=== PATIENT | male | born 1960 | race Caucasian/White ===

== ENCOUNTER 2021-01-11 12:45 | Outpatient (CLI) | payer OTHER, SELFPAY ==
--- NOTE | ~2021-01-11 | XR_ITS ---
EXAMINATION: XR knee LT 3V DATE: 01/11/2021 13:02 INDICATION: Left knee pain. TECHNIQUE: 3 views of left knee were obtained. COMPARISON: None. FINDINGS: Bone alignment is normal. No fracture. There is mild osteoarthritis of patellofemoral jessica rtment characterized by a tiny marginal osteophyte. No knee joint effusion. IMPRESSION: 1. Mild left knee osteoarthritis. Reviewed, dictated and finalized at location A.
== END 2021-01-11 12:46 | disposition home or self-care (01) ==
LOC: ANHIMG 12:48
PROVIDERS: PCP Internal Medicine; Visit Provider Nurse Practitioner
DX: M17.12 Unilateral primary osteoarthritis, left knee (principal)
CPT/HCPCS: 73562

== ENCOUNTER 2021-06-24 12:01 | Outpatient (CLI) | payer OTHER, SELFPAY ==
--- NOTE | ~2021-06-24 | XR_ITS ---
XR chest 2V DATE: 06/24/2021 12:20 INDICATION: Abnormal weight loss, 10 pounds over the past year. Smoker. TECHNIQUE: 2 views COMPARISON: None FINDINGS: There is bilateral hyperinflation with flattening the diaphragm and increased retrosternal airspace consistent with COPD. No pulmonary infiltrate or consolidation or pulmonary mass lesion is e vident. Normal heart size. No hilar or mediastinal enlargement. IMPRESSION: Bilateral hyperinflation consistent with COPD Reviewed, dictated and finalized at location A.
== END 2021-06-24 12:02 | disposition home or self-care (01) ==
LOC: ANHIMG 12:05
PROVIDERS: PCP Internal Medicine; Visit Provider Internal Medicine
DX: R63.4 Abnormal weight loss (principal); R91.8 Other nonspecific abnormal finding of lung field
CPT/HCPCS: 71046

== ENCOUNTER 2022-04-28 00:30 | Day surgery (SDC) | payer BC, SELFPAY ==
--- NOTE | 2022-04-27 13:23 | P.HP_ITS ---
History of Present Illness History of Present Illness Consent: Risks, benefits, and alternatives have been discussed and questions answered. Patient agrees to proceed with procedure. Chief complaint: neoplasm screening Narrative: Gerry Davalos is a 61 year old male referred for colon cancer screening. His last colonoscopy was 10 years ago. Review of Systems Review of Systems: All systems reviewed & are unremarkable except as noted in HPI and below PMFSH Past Medical History Medical History Chronic back pain Depression Hypothyroid Family History Family History Grandparent Diabetes mellitus Sibling Asthma Father History of joint problems Social History Social History Smoking status: Never smoker Second hand tobacco smoke exposure: No Additional smoking assessment comments: patient states that he smokes marijuana Alcohol intake: current Alcohol use details: 4 drinks of whisky/coke per night Substance use: current Substance use type: marijuana Other substance usage details: 2-4 bong heads per day Living arrangements: alone Additional occupation/education comments: [employer] [facility] [employer] Spiritual care concerns: No Meds Home Medications and Allergies Home Medications Medication Instructions Recorded Confirmed Type finasteride 5 mg tablet 5 mg PO DAILY 07/20/19 04/28/22 History multivitamin 1 tablet PO DAILY 02/04/21 04/28/22 History omega 8-vkn-xwt-fish oil 1,200 mg 1 cap PO BID 02/04/21 04/28/22 History (144 mg-216 mg) capsule calcium carbonate 600 mg calcium 600 mg PO DAILY #14 tabs 01/06/22 04/28/22 Rx (1,500 mg) tablet (Calcium) ascorbic acid (vitamin C) 500 mg 500 mg PO BID 04/19/22 04/28/22 History tablet bupropion HCl 150 mg tablet,12 hr 150 mg PO DAILY 04/19/22 04/28/22 History sustained-release citalopram 20 mg tablet 20 mg PO DAILY 04/19/22 04/28/22 History levothyroxine 100 mcg tablet 100 mcg PO DAILY 04/19/22 04/28/22 History Allergies Allergy/AdvReac Type Severity Reaction Status Date / Time No Known Allergies Allergy Verified 08/19/22 09:36 Exam Resp: Auscultation: clear to auscultation bilaterally Cardio: Rate: regular rate Rhythm: regular rhythm GI: GI Palp: Yes Soft to palpation and No Tenderness to palpation present (GI) Results Results Additional studies: Colonoscopy with possible biopsy or polypectomy or cautery or injection of substances.
[2022-04-28 09:37] VITALS: BP 126/89; PULSE 79; RESP 16; TEMP 36.2; O2SAT 97
[2022-04-28] MEDS: LACTATED RINGERS 1,000 ML 150 ML IV CONT (09:46)
--- NOTE | 2022-04-28 10:04 | P.PNAN_ITS ---
Anes - Initial Pre Proc Eval Procedure: Operation Date: 04/28/22 10:30 Proposed Procedures p Screening Colonoscopy - Brian Dillard MD Date/Time: 04/28/22 10:04 Surgeon: Brian Dillard MD Pre Op Diagnosis: neoplasm screening Patient Data Age: 61 Gender: M Height: 1.75 m Weight: 65.5 kg Last Vital Signs Temp 97.1 F L 04/28/22 09:37 Pulse 79 04/28/22 09:37 Resp 16 04/28/22 09:37 BP 126/89 04/28/22 09:37 Pulse Ox 97 04/28/22 09:37 O2 Del Method Room Air 04/28/22 09:37 Allergies Allergy/AdvReac Type Severity Reaction Status Date / Time No Known Allergies Allergy Verified 04/28/22 09:36 Home Medications Medication Instructions Recorded Confirmed Type finasteride 5 mg tablet 5 mg PO DAILY 07/20/19 04/28/22 History multivitamin 1 tablet PO DAILY 02/04/21 04/28/22 History omega 2-ejz-wth-fish oil 1,200 mg 1 cap PO BID 02/04/21 04/28/22 History (144 mg-216 mg) capsule calcium carbonate 600 mg calcium 600 mg PO DAILY #14 tabs 01/06/22 04/28/22 Rx (1,500 mg) tablet (Calcium) ascorbic acid (vitamin C) 500 mg 500 mg PO BID 04/19/22 04/28/22 History tablet bupropion HCl 150 mg tablet,12 hr 150 mg PO DAILY 04/19/22 04/28/22 History sustained-release citalopram 20 mg tablet 20 mg PO DAILY 04/19/22 04/28/22 History levothyroxine 100 mcg tablet 100 mcg PO DAILY 04/19/22 04/28/22 History Patient hx anesthesia problems: none Family hx anesthesia problems: none Results Review: All pre-operative results and documents have been reviewed as part of the pre-operative evaluation. [facility] Past Medical History Medical History Chronic back pain Depression Hypothyroid Family History Family History Grandparent Diabetes mellitus Sibling Asthma Father History of joint problems Social History Social History Smoking status: Never smoker Second hand tobacco smoke exposure: No Additional smoking assessment comments: patient states that he smokes marijuana Alcohol intake: current Alcohol use details: 4 drinks of whisky/coke per night Substance use: current Substance use type: marijuana Other substance usage details: 2-4 bong heads per day Living arrangements: alone Additional occupation/education comments: [employer] Spiritual care concerns: No Anes - Eval Final PreProcedure Day of Procedure 04/28/22 10:04 Patient weight: normal Heart: regular rate and rhythm Lungs: clear to auscultation Airway: Mallampati scale class II Neurological: alert and oriented Last oral intake: >/= 8 hours ASA classification: III Emergent: no Anesthetic plan: proceed Anesthesia type and monitoring: general GIVS and standard monitoring Results Review: All pre-operative results and documents have been reviewed as part of the pre- operative evaluation. Informed Consent: The patient's anesthetic plan and its attendant risks and benefits were discussed with the patient/family/POA. Questions were solicited and answers provided to the satisfaction of the patient/family/POA.
[2022-04-28] MEDS: SIMETHICONE ORAL SUSPENSION 20 MG/0.3 ML 30 ML BOTTLE 0.6 ML IRRIGATION (10:20)
[2022-04-28 10:29] VITALS: BP 107/74; PULSE 67; RESP 17; O2SAT 96
[2022-04-28 10:39] VITALS: BP 131/86; PULSE 63; RESP 17; O2SAT 99
[2022-04-28 10:49] VITALS: BP 142/94; PULSE 59; RESP 19; O2SAT 100
== END 2022-04-28 11:11 | disposition home or self-care (01) ==
PROVIDERS: PCP Internal Medicine; Visit Provider Internal Medicine Gastroenterology
PROC: 0DJD8ZZ Inspection of Lower Intestinal Tract, Via Natural or Artificial Opening Endoscopic (ICD-10-PCS; CPT 45378; principal; 2022-04-28 10:30)
DX: Z12.11 Encounter for screening for malignant neoplasm of colon (principal); K57.30 Diverticulosis of large intestine without perforation or abscess without bleeding; D12.4 Benign neoplasm of descending colon; D12.5 Benign neoplasm of sigmoid colon; E03.9 Hypothyroidism, unspecified; F32.A Depression, unspecified; F12.90 Cannabis use, unspecified, uncomplicated
CPT/HCPCS: 45385; 88305; J2704; J7120

== ENCOUNTER 2023-05-08 10:00 | Outpatient (RCR) | payer BC, SELFPAY ==
--- NOTE | 2023-04-10 11:47 | OPREHPOC ---
Outpatient Therapy Plan of Care This is a Multidisciplinary Plan of Care that may contain components documented by all disciplines (PT, OT, and ST.) PT Problem 1 PT Problem #1 Knowledge Deficit PT Goal 1 Goal 1* indep with HEP PT Problem 2 PT Problem #2 Pain PT Goal 1 Goal 1* pt report pain at worst of R shoulder 2/10 2* pt report times of NO pain in R shoulder 3* pt report able to walk his dog without an increase in R shoulder pain PT Problem 3 PT Problem #3 Impaired Strength PT Goal 1 Goal 1* pt perform 20 reps of scapular-thoracic strengthening exercises in standing and on mat. 2* pt maintain good shoulder position during exercises
--- NOTE | 2023-04-10 11:48 | PTOPEVAL1 ---
Assessment and note entered by Ronel Cuevas, PT Evaluation Information Assessment Status Evaluation Diagnosis R shoulder pain, dorsalgia, chronic pain Onset January 2023 Subjective Information wants to start treatment on shoulder, more aggravating than his back at this time; R shoulder pain is new, back pain is chronic gradual increase in R shoulder pain with walking dog, pulls on the leash and hurts his shoulder; working on training dog to walk better; no imaging or tests on shoulder; ACTIVITY: work at [employer], no lifting over 10#; been there 45 years and going to retire soon; Reported Pain Level Pain Score Self Report Additional Pain Score Comments pain range in the past week: 1-12/18, R shoulder pain- lateral GH joint and upper humerus; increase pain: walking dog and dog pulls on leash, lie on R shoulder; decrease pain: rest, extra strength tylenol, prescription from have not used ice or heat for shoulder- instruct on PRN use problems getting comfortable to sleep, change positions is able to do all of his usual work duties; at home-- cannot chop wood for bonfires, lifting Assessment PT Clinical Summary Gerry has 2 diagnosis': R shoulder pain and back pain. He wants treatment for his shoulder first. No injury to shoulder, but pain increased with walking his dog and dog pulling on the leash. He is able to do all of his work tasks, but at home is not able to do heavy lifting or chopping wood. With the evaluation, he has poor standing posture of trunk and shoulder, with winging of his scapula; pain and spasms over R mid deltoid; his shoulder active ROM is WNL, pain increase with shoulder abduction and flexion motions and supraspinatus resistance; Skilled PT services are indicated for modalities for pain control, therapeutic exercises to increase thoracic/scapular strength and position of GH joint with educati
--- NOTE | 2023-05-08 10:43 | PTOPDC ---
Assessment and note entered by Ronel Cuevas, PT Evaluation Information Assessment Status Discharge Diagnosis R shoulder pain, dorsalgia, chronic pain Onset January 2023 Subjective Information shoulder is much better, now just a dull pain; walked the dog yesterday and did better--used my L arm and dog was not pulling as much; doing all the exercises at home, some soreness with them, but more like muscles working; work is good; do not feel like he could get back to chopping wood yet; low back is better- do not need any treatment for it; agree to finish therapy. Reported Pain Level Pain Score Self Report Additional Pain Score Comments dull pain, staying 2/10 all time, exercises keep it at 2/10, may be from working and doing more exercises; take tylenol extra strength 1-2x/day; not using any ice or heat for shoulder; can lie on R side about 1 hour; low back is better- watching his posture and standing, sitting straight has helped Assessment PT Clinical Summary Gerry has received a total of 5 PT sessions for R shoulder pain. He also has orders for back pain, but states his back is better and does not want therapy for it. Compared to the initial evaluation: pain has decreased at the high rating from 3 to 2/10 and low rating was 1 and now stays 2/10- dull pain all time. No tenderness with palpation over shoulder; able to tolerate lying on his shoulder for short time; increase strength of shoulder- scapular complex, with improved posture. Education completed for HEP and posture. The goals were met, except goal of NO pain. Discharge PT services Plan of Care PT Services Indicated No
== END 2023-05-08 11:29 | disposition home or self-care (01) ==
LOC: ANHPT 10:00
PROVIDERS: PCP Family Medicine; Visit Provider Family Medicine
DX: M25.511 Pain in right shoulder (principal); M54.9 Dorsalgia, unspecified; G89.29 Other chronic pain
CPT/HCPCS: 97110; 97140; 97161; 97530

== ENCOUNTER 2023-07-31 11:43 | Outpatient (CLI) | payer BC, SELFPAY ==
--- NOTE | ~2023-07-31 | XR_ITS ---
EXAMINATION: XR ribs LT 2V w CXR 2V INDICATION: Left chest pain TECHNIQUE: Frontal and lateral views of the chest and 3 views of the left ribs were obtained. COMPARISON: 06/24/2021 FINDINGS: The lungs are free of acute opacities. No pleural effusion or pneumothorax. The cardiomedia stinal silhouette is normal. There is mild thoracic spondylosis. There are acute minimally displaced anterolateral fractures of the left eighth through 10th ribs. There is a healed lateral fracture of t he left eighth rib. IMPRESSION: 1. Acute minimally displaced anterolateral fractures of the left eighth, ninth, and 10th ribs. Reviewed, dictated and finalized at location F. OF BIOLOGY
== END 2023-07-31 11:44 | disposition home or self-care (01) ==
PROVIDERS: PCP Family Medicine; Visit Provider Nurse Practitioner Family
DX: R07.81 Pleurodynia (principal); R05.9 Cough, unspecified; S22.42XD Multiple fractures of ribs, left side, subsequent encounter for fracture with routine healing; X58.XXXD Exposure to other specified factors, subsequent encounter
CPT/HCPCS: 71046; 71100

== ENCOUNTER 2023-12-27 08:43 | Outpatient (CLI) | payer BC, SELFPAY ==
--- NOTE | ~2023-12-27 | DEXA_ITS ---
Bone Density Report Name: JENNIFER JENSEN Age: 63 Sex: Male Ethnicity: White Date of : 1960 Indication: hyperparathyroidism; history of glucocorticoids; secondary osteoporosis; Referring Provider: AME WILLS Study: Bone densitometry was performed. Exam Date: December 27, 2023 Accession number: [id number] Bone Density: Region BMD T-score Z-score Classification AP Spine(L1-L4) 1.077 -0.1 0.6 Normal Femoral Neck (Left) 0.797 -1.0 0.0 Normal Total Hip (Left) 0.978 -0.4 0.1 Normal Femoral Neck (Right) 0.774 -1.1 -0.2 Osteopenia Total Hip (Right) 0.922 -0.7 -0.3 Normal Total Hip Mean 0.950 -0.6 -0.1 Normal World Health Organization criteria for BMD impression classify patients as: Normal (T-score at or above -1.0), Osteopenia (T-score between -1.0 and -2.5), or Osteoporosis (T-score at or below -2.5). 10-year Fracture Risk(1): Major Osteoporotic Fracture 9.8% Hip Fracture 2.2% Reported Risk Factors: [place] (), Neck BMD=0.774, BMI=24.4, smoking, glucocorticoids, secondary osteoporosis, alcohol use (1) FRAX(R) Version 3.08. Fracture probability calculated for an untreated patient. Fracture probability may be lower if the patient has received treatment. Clinical Information Provided by Patient: Smokes Has taken Glucocorticoids Has secondary osteoporosis Has 3 or more alcoholic drinks per day Has used the following medications: Calcium Has the following medical conditions: Hyperparathyroidism Patient maximum height was 68 Drinks caffeinated beverages Impression: The patient has low bone mass, based on the Right Femoral Neck T-score. The patient has an estimated ten-year risk of hip fracture of 2.2% and an estimated ten-year risk of major fracture of 9.8%, based on the WHO FRAX algorithm. The patient has risk factors, including: smoking, excessive alcohol use, history of glucocorticoid therapy. Discussion: BONE DENSITY IS LOW AT ONE OR MORE SKELETAL SITES. This patient's lowest T-score is low at one or more skeletal sites. It meets the World Health Organization's (WHO) criteria for ?low bone mass? (T-score between -1.0 and -2.5). The patient's 10-year risk of fracture as calculated by FRAX is less than the threshold where pharmacological therapy is recommended by the National Osteoporosis Foundation (NOF). However, all treatment decisions require clinical judgment and consideration of individual patient factors, including patient preferences, comorbidities, previous drug use, risk factors not captured in the FRAX model (e.g., frailty, falls, vitamin D deficiency, increased bone turnover, interval significant decline in bone density) and possible under or overestimation of fracture risk by FRAX. The patient should follow a healthful lifestyle (good nutrition with adequate calci
== END 2023-12-27 08:44 | disposition home or self-care (01) ==
PROVIDERS: PCP Family Medicine; Visit Provider Family Medicine
DX: E03.9 Hypothyroidism, unspecified (principal); Z82.62 Family history of osteoporosis; T14.8XXA Other injury of unspecified body region, initial encounter; M85.88 Other specified disorders of bone density and structure, other site
CPT/HCPCS: 77080

== ENCOUNTER 2024-01-02 13:38 | Emergency (ER) | payer BC, SELFPAY ==
--- NOTE | 2024-01-02 13:42 | PC.NURSE ---
PT LEFT D/T POSSIBLE WAIT TIME
== END 2024-01-02 13:42 | disposition left against medical advice (07) ==
PROVIDERS: PCP Family Medicine
DX: M54.9 Dorsalgia, unspecified (principal)
CPT/HCPCS: 99199

== ENCOUNTER 2025-04-24 14:42 | Emergency (ER) | payer BC, SELFPAY ==
[2025-04-24 14:44] VITALS: BP 133/85; PULSE 95; RESP 16; TEMP 37.1; O2SAT 100
--- OUTSIDE RECORDS SUMMARY | 2025-04-24 14:45 | XMS_ITS | Clinical Summary ---
Author Organization [facility] Address [address] [place] [address] Care Team Providers Care Film Masker Name Role Phone Casey Hollis DO Primary Care Provider [phone] Source Comments [facility],non-owned Affiliates and Associated Physician Practices is amultiple site organization consisting of ambulatory clinics and hospital sitesin [place], [place], [place] and [place]. This disclosure is being madepursuant to the Care Everywhere program and may not contain all information available regarding this patient. Last updated 18.[facility] Allergies No known active allergies Medications * Be aware that medications may not be up to date on this document. Alwaysverify current medications with the patient. oxyCODONE, immediate release, (ROXICODONE) 5 MG tabletIndication s:Acute Pain Take 1 tablet by mouth every 6 hours as needed for Pain Reasons: Acute Pain 12 tablet 07/21/2019 Active buPROPion SR 12hr (WELLBUTRIN-SR) 150 MG tablet 05/19/2019 Activ e citalopram (CELEXA) 20 MG tablet 07/08/2019 Active finasteride (PROSCAR) 5 MG tablet 07/03/2019 Active levothyroxine (SYNTHROID) 100 MCG tablet 07/10/2019 Active Active Problems Problem Noted Date Diagnosed Date Closed displaced fracture of tuberosity of left calcaneus with routine healing 08/14/2019 Social History Tobacco Use Types Packs/Day Years Used Date Smoking Tobacco: Never Smokeless Tobacco: Never Sex and Gender Information Value Date Recorded Sex Assigned at Not on file 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 Gender Identity Not on file Sexual Orientation Not on file Last Filed Vital Signs Vital Sign Reading Time Taken Comments Blood Pressure 136/83 07/20/2019 9:37 PM VEHICLE REFINISHER Pulse 67 07/20/2019 9:37 PM VEHICLE REFINISHER Temperature 36.8 C (98.3 F) 07/20/2019 9:37 PM VEHICLE REFINISHER Respiratory Rate 14 07/20/2019 9:37 PM VEHICLE REFINISHER Oxygen Saturation 98% 07/20/2019 9:37 PM VEHICLE REFINISHER Inhaled Oxygen Concentration - - Weight 72.6 kg (160 lb) 12/04/2019 10:51 AM CDT Height 175.3 cm (5' 9) 12/04/2019 10:51 AM CDT Body Mass Index 23.63 12/04/2019 10:51 AM CDT Plan of Treatment Health Maintenance Due Date Last Done Comments COLOGUARD (AGES 45-75) - COL ON CA SCREENING 1960 COLON MONITORING 1960 COLONOSCOPY - COLON CA SCREENING 1960 CT COLONOGRAPHY - COLON CA SCREENING 1960 Colorectal Cancer Screening 1960 FIT - COLON CA SCREENING 1961 FLEX SIG - COLON CA SCREENING 1961 LIPID TESTING 1960 HIV SCREENING 1976 HEPATITIS C SCREENING 08/22/1979 DTAP/TDAP/TD VACCINES (1 - Tdap) 1980 PNEUMOCOCCAL VACCINE 50+ (1 of 1 - PCV) 2011 ZOSTER VACCINE (1 of 2) 2011 COVID-19 VACCINE ( - 2023-2 5 season) 2024 DEPRESSION SCREENING 09/10/2024 INFLUENZA VACCINE (#1) 2025 Respiratory Syncytial Virus (RSV) Vaccine Pt: or over 60 yrs (1 - 1-dose 75+ series) 2036 HEPATITIS B VACCINE Aged Out No longe r eligible based on patient's age to complete this topic HIB VACCINE Aged Out No longer eligi ble based on patient's age to complete this topic HPV VACCINE Aged Out No longer eligi ble based on patient's age to complete this topic MENINGOCOCCAL (Group B) VACC INE SHARED DECISION-MAKING Aged Out No longer eligibl e based on patient's age to complete this topic MENINGOCOCCAL GROUPS A/C/Y/W VACCINE Aged Out No longer eligible b ased on patient's age to complete this topic Insurance ANTHEM Care Teams Film Masker Relationship Specialty Start Date End Date Casey Hollis DO [address] [place] [address] PCP - General 05/05/22
--- NOTE | 2025-04-24 15:38 | CONSULT_PTH ---
PATIENT: Gerry Davalos LOC: [facility] U#:[id number] AGE/SX: 64/M ROOM: RE04/24/[address]: Johnnie Qureshi MD : 1960 BED: DIS: 04/24/2025 SPEC #: [id number] RECD: 04/24/25 16:15 STATUS: DWAYNE RE #: [id number] OLIVIA: 04/24/25 15:[address]: Johnnie Qureshi DEPT: [facility] Consult RECD BY: Riaz Pablo MLT ENTERED: 04/24/25 16:18 SP TYPE: Consult OTHR DR: Marlon Brewer MD Tissues: A - Peripheral Smear Procedures: Hematology Consult
[2025-04-24 15:44] LABS: Hematocrit 28.5 % (42.0-52.0); Hemoglobin 9.2 g/dL (14.0-18.0); Mean Corpuscular HGB Conc 32.3 g/dl (32-36); Mean Corpuscular Hemoglobin 34.1 pg (26-34); Mean Corpuscular Volume 105.6 fl (80-100); Platelet Count Result 501 k/mm3 (150-375); Red Blood Count 2.70 M/mm3 (4.6-6.20); White Blood Count 12.0 K/mm3 (4.5-10.0)
[2025-04-24 15:53] LABS: Alanine Aminotransferase 23 U/L (6-50); Albumin Level 3.6 g/dL (3.5-5.1); Alkaline Phosphatase 73 U/L (38-126); Anion Gap 4 mmol/L (4-12); Aspartate Amino Transferase 21 U/L (17-59); Bilirubin,Total 1.1 mg/dL (0.2-1.3); Blood Urea Nitrogen 11 mg/dL (9-20); Calcium 9.4 mg/dL (8.4-10.2); Carbon Dioxide 30 mmol/L (22-30); Chloride 102 mmol/L (98-107); Estimated CRCL calculation 88 ml/min; Estimated Glomerular Filt Rate > 60; Glucose 99 mg/dL (65-110); Potassium 4.8 mmol/L (3.4-5.0); Sodium 136 mmol/L (137-145); Total Protein 6.7 g/dL (6.3-8.2)
[2025-04-24 15:54] LABS: INR 1.0; Prothrombin Time 13.6 Seconds (11.1-14.7)
[2025-04-24 15:55] LABS: Partial Thromboplastin Time 29.4 Seconds (22.3-36.8)
--- OUTSIDE RECORDS SUMMARY | 2025-04-24 16:04 | XMS_ITS | Clinical Summary ---
Author Organization [facility] Address [address] [place] [address] Care Team Providers Care Torpedo Specialist Name Role Phone Casey oHllis DO Primary Care Provider [phone] Source Comments [facility],non-owned Affiliates and Associated Physician Practices is amultiple site organization consisting of ambulatory clinics and hospital sitesin [place], [place], [place] and [place]. This disclosure is being madepursuant to the Care Everywhere program and may not contain all information available regarding this patient. 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 Gender Identity Not on file Sexual Orientation Not on file Last Filed Vital Signs Vital Sign Reading Time Taken Comments Blood Pressure 136/83 07/20/2019 9:37 PM BUILDINGS AND GROUNDS DIRECTOR Pulse 67 07/20/2019 9:37 PM BUILDINGS AND GROUNDS DIRECTOR Temperature 36.8 C (98.3 F) 07/20/2019 9:37 PM BUILDINGS AND GROUNDS DIRECTOR Respiratory Rate 14 07/20/2019 9:37 PM BUILDINGS AND GROUNDS DIRECTOR Oxygen Saturation 98% 07/20/2019 9:37 PM BUILDINGS AND GROUNDS DIRECTOR Inhaled Oxygen Concentration - - Weight 72.6 [...] complete this topic Insurance ANTHEM Care Teams Torpedo Specialist Relationship Specialty Start Date End Date Casey Hollis DO [address] [place] [address] PCP - General 05/05/22
[2025-04-24 16:11] LABS: Band Neutrophils Percent 0 % (0-6); Lymphocytes Absolute Manual 3.12 K/mm3 (1.1-4.5); Lymphocytes Percent Manual 26 % (18-44); Monocytes Absolute Manual 1.20 K/mm3 (0.1-0.90); Monocytes Percent Manual 10 % (3-9); Neutrophils Absolute Manual 3.00 K/mm3 (1.3-6.7); Neutrophils Percent Manual 25 % (46-73); Total Cells Counted 100
[2025-04-24 16:12] LABS: Basophils Absolute Manual 0.72 K/mm3 (0.0-0.1); Basophils Percent Manual 6 % (0-1); Eosinophils Absolute Manual 3.96 K/mm3 (0.02-0.50); Eosinophils Percent Manual 33 % (0-4); Smudge Cells FEW
[2025-04-24 16:13] LABS: Macrocytosis 1+ (NORMAL); Polychromasia 1+; Schistocytes None Seen
--- NOTE | 2025-04-24 16:22 | ED.GENADULT ---
HPI - General Adult General Chief complaint: Skin/Abscess/Foreign Body Stated complaint: shingles vs brown recluse Time Seen by Provider: 04/24/25 15:04 History of Present Illness HPI narrative: This is a 64-year-old male sent in from urgent care for possible brown recluse bite. Patient developed a rash over his right anterior chest wall approximately 3 weeks ago. Since then it has become a large necrotic lesion. He was seen in urgent care this morning then referred to the ER for further management. The patient has pain at the site but is denying fever or chills. No nausea vomiting or diarrhea. He has not seen a wound care clinic for this. Related Data Home Medications ?Medication ?Instructions ?Recorded ?Confirmed ?Last Taken ?Type finasteride 5 mg tablet 5 mg PO DAILY 07/20/19 04/24/25 04/26/22 History multivitamin 1 tablet PO DAILY 02/04/21 04/24/25 04/26/22 History omega 7-roh-uny-fish oil 1,200 mg 1 cap PO BID 02/04/21 04/24/25 04/26/22 History (144 mg-216 mg) capsule ascorbic acid (vitamin C) 500 mg 500 mg PO BID 04/19/22 04/24/25 04/26/22 History tablet Allergies Allergy/AdvReac Type Severity Reaction Status Date / Time No Known Allergies Allergy Verified 04/24/25 14:15 [facility] Past Medical History Medical History BPH (benign prostatic hyperplasia) Hyperlipidemia Anxiety and depression Depression Hypothyroid Chronic back pain Family History Family History Grandparent Diabetes mellitus Sibling Asthma Father History of joint problems Social History Social History Smoking status: Never smoker Second hand tobacco smoke exposure: No Additional smoking assessment comments: patient states that he smokes marijuana Alcohol intake: current Alcohol use details: 4 drinks of whisky/coke per night Substance use: current Substance use type: marijuana Other substance usage details: 2-4 bong heads per day Lack of Transportation: No Lack of Food: Never True Current Housing: I Have Housing Concerned About Future Housing: No Difficulty Paying Gas/Electric Bills: No Difficulty Paying for Meds: No Currently Unemployed: No Education: Bachelor's Degree Difficulty w/ Childcare or Family Care: No Living arrangements: alone Occupation/Education: occupation Additional occupation/education comments: [employer] Spiritual care concerns: No Exam Narrative: APPEARANCE: No apparent distress. Head: atraumatic. EYES: EOMI, NOSE: Atraumatic NECK: Trachea midline RESPIRATORY: No increased rate of breathing CARDIOVASCULAR: RRR, ABDOMINAL: Non-distended MUSCULOSKELETAl: No obvious deformities NEURO: Alert. Moving 4/4 extremities SKIN:: Necrotic lesion over the right anterior chest wall with eschar and granulation tissue. 1-2 cm of surrounding erythema. No central area of fluctuance or abscess to drain. PSYCHIATRIC: Normal affect Course Vital Signs Vital signs: Vital Signs Temperature 98.8 F 04/24/25 14:44 Pulse Rate 95 04/24/25 14:44 Respiratory Rate 16 04/24/25 14:44 Blood Pressure 133/85 04/24/25 14:44 Pulse Oximetry 100 04/24/25 14:44 Oxygen Delivery Room Air 04/24/25 14:44 Temperature 98.8 F 04/24/25 14:44 Pulse Rate 95 04/24/25 14:44 Respiratory Rate 16 04/24/25 14:44 Blood Pressure 133/85 04/24/25 14:44 Pulse Oximetry 100 04/24/25 14:44 Oxygen Delivery Room Air 04/24/25 14:44 Medical Decision Making [facility] Narrative Medical decision making narrative: -Course: 64-year-old male presenting with necrotic lesion to his right anterior chest wall. Findings consistent with brown recluse bite with significant skin necrosis. Wound has been slowly getting worse but there has not been any rapid progression. Attempted consult the wound care clinic however was after hours. IV shows with primary care physician who will arrange follow-up with the wound care clinic on Sunday. I discussed admission versus discharge the patient has a small dog at home and does not want to be admitted to the hospital if possible. His Vital signs are stable. Slight elevation in his white blood cell count. Afebrile. His wound is slowly progressing but has not had any rapid progression over last 3 weeks. He should be able to follow-up on Sunday without significant change in condition. Patient will discharged on clindamycin. Given strict return precautions. -DDX includes but is not limited to: Primary close bite, necrotizing soft tissue infection Vital Signs Vital Signs: Vital Signs Temperature 98.8 F 04/24/25 14:44 Pulse Rate 95 04/24/25 14:44 Respiratory Rate 16 04/24/25 14:44 Blood Pressure 133/85 04/24/25 14:44 Pulse Oximetry 100 04/24/25 14:44 Oxygen Delivery Room Air 04/24/25 14:44 Temperature 98.8 F 04/24/25 14:44 Pulse Rate 95 04/24/25 14:44 Respiratory Rate 16 04/24/25 14:44 Blood Pressure 133/85 04/24/25 14:44 Pulse Oximetry 100 04/24/25 14:44 Oxygen Delivery Room Air 04/24/25 14:44 Lab Data 04/24/25 15:34 04/24/25 15:34 Labs: Lab Results 04/24/25 Range/Units 15:34 WBC 12.0 H (4.5-10.0) K/mm3 RBC 2.70 L (4.6-6.20) M/mm3 Hgb 9.2 L (14.0-18.0) g/dL Hct 28.5 L (42.0-52.0) % MCV 105.6 H (80-100) fl MCH 34.1 H (26-34) pg MCHC 32.3 (32-36) g/dl RDW 15.1 H (11.5-14.5) % Plt Count 501 H (150-375) k/mm3 MPV 8.9 (7.4-10.4) fl Immature Gran % (Auto) Not Reportable Neut % (Auto) Not Reportable Lymph % (Auto) Not Reportable Miner % (Auto) Not Reportable Eos % (Auto) Not Reportable Baso % (Auto) Not Reportable Lymph # (Auto) Not Reportable Miner # (Auto) Not Reportable Eos # (Auto) Not Reportable Baso # (Auto) Not Reportable Abs Immat Gran (auto) Not Reportable Absolute Neuts (auto) Not Reportable Absolute Nucleated RBC Not Reportable Total Counted 100 Neutrophils % (Manual) 25 L (46-73) % Band Neutrophils % 0 (0-6) % Lymphocytes % (Manual) 26 (18-44) % Monocytes % (Manual) 10 H (3-9) % Eosinophils % (Manual) 33 H (0-4) % Basophils % (Manual) 6 H (0-1) % Nucleated RBC % Not Reportable Abs Neuts (Manual) 3.00 (1.3-6.7) K/mm3 Abs Lymphs (Manual) 3.12 (1.1-4.5) K/mm3 Abs Monocytes (Manual) 1.20 H (0.1-0.90) K/mm3 Absolute Eos (Manual) 3.96 H (0.02-0.50) K/mm3 Abs Basophils (Manual) 0.72 H (0.0-0.1) K/mm3 Smudge Cells Few Platelet Estimate Increased (Adequate) Polychromasia 1+ Macrocytosis 1+ (NORMAL) Schistocytes None seen PT 13.6 (11.1-14.7) Seconds INR 1.0 APTT 29.4 (22.3-36.8) Seconds Sodium 136 L (137-145) mmol/L Potassium 4.8 (3.4-5.0) mmol/L Chloride 102 (98-107) mmol/L Carbon Dioxide 30 (22-30) mmol/L Anion Gap 4 (4-12) mmol/L BUN 11 (9-20) mg/dL Creatinine 0.72 (0.7-1.3) mg/dL Estim Creat Clear Calc 88 ml/min Estimated GFR > 60 (59 - ) Glucose 99 (65-110) mg/dL Calcium 9.4 (8.4-10.2) mg/dL Total Bilirubin 1.1 (0.2-1.3) mg/dL AST 21 (17-59) U/L ALT 23 (6-50) U/L Alkaline Phosphatase 73 (38-126) U/L Total Protein 6.7 (6.3-8.2) g/dL Albumin 3.6 (3.5-5.1) g/dL Discharge Plan Discharge Clinical Impression: Necrotic eschar Patient Disposition: Home Condition: Stable Instructions: Antibiotic Form, Brown Recluse Spider Bite (ED) Additional Instructions: You were seen in the emergency department for a brown recluse bite. I spoke with Dr. Brewer who is arranging follow-up at the wound care clinic on Sunday. Please call his clinic or the Wound Care Clinic to confirm this appointment. Please take clindamycin as instructed. If you feel your condition is getting worse over the weekend you can return to the ED for re-evaluation. Wound care clinic is located at: [facility], 2nd Floor [address] [facility] [address] [place] [id number] Patient Language: Slovak Prescriptions: New clindamycin HCl [Cleocin HCl] 300 mg capsule 300 mg PO Q6H 7 Days Qty: 28 0RF No Action finasteride 5 mg Tablet 5 mg PO DAILY calcium carbonate [Calcium 600] 600 mg calcium (1,500 mg) tablet 600 mg PO DAILY Qty: 14 0RF albuterol sulfate 90 mcg/actuation HFA aerosol inhaler 1 inh inhalation Q4H PRN (Reason: shortness of breath or wheezing) Qty: 8.5 3RF montelukast [Singulair] 10 mg tablet 10 mg PO DAILY Qty: 90 0RF buspirone 7.5 mg tablet 7.5 mg PO BID Qty: 60 0RF omega 5-pco-fte-fish oil 1,200 (144-216) mg capsule 1 cap PO BID multivitamin Tablet 1 tablet PO DAILY ascorbic acid (vitamin C) 500 mg Tablet 500 mg PO BID citalopram 20 mg tablet 20 mg PO DAILY Qty: 90 1RF Rx Instructions: TAKE 1 TABLET BY MOUTH EVERY DAY bupropion HCl 150 mg tablet sustained-release 12 hr 150 mg PO DAILY Qty: 90 1RF Rx Instructions: TAKE ONE TABLET BY MOUTH ONCE DAILY levothyroxine 100 mcg tablet See Rx Instructions .ROUTE .COMPLEX Qty: 90 1RF Dose Instruction: TAKE ONE TABLET BY MOUTH ONCE DAILY Rx Instructions: TAKE ONE TABLET BY MOUTH ONCE DAILY citalopram 40 mg tablet 40 mg PO DAILY Qty: 90 1RF meloxicam 7.5 mg tablet See Rx Instructions .ROUTE .COMPLEX Qty: 30 1RF Dose Instruction: TAKE 1 TABLET BY MOUTH EVERY DAY Rx Instructions: TAKE 1 TABLET BY MOUTH EVERY DAY Follow-up/Referrals: Marlon Brewer MD [Primary Care Provider] - 1 Day (Brown recluse bite. Needs wound care referral kianna)
== END 2025-04-24 16:45 | disposition home or self-care (01) ==
PROVIDERS: Emergency Provider Emergency Medicine; PCP Family Medicine
DX: T63.331A Toxic effect of venom of brown recluse spider, accidental (unintentional), initial encounter (principal); I96 Gangrene, not elsewhere classified; N40.0 Benign prostatic hyperplasia without lower urinary tract symptoms; E03.9 Hypothyroidism, unspecified; E78.5 Hyperlipidemia, unspecified; F41.9 Anxiety disorder, unspecified; F32.A Depression, unspecified
CPT/HCPCS: 36415; 80053; 85025; 85610; 85730; 99283